=== PATIENT | female | born 1980 | race Caucasian/White ===

== ENCOUNTER 2021-10-31 15:54 | Emergency (ER) | payer OTHER, SELFPAY ==
[2021-10-31 16:08] VITALS: BP 120/82; PULSE 78; RESP 14; TEMP 37; O2SAT 96; BMI 24.3
--- NOTE | 2021-10-31 16:25 | ED_ITS ---
Documented by User: JENNIFER Liz 10/31/21 16:27 HPI - Abdominal Pain General: Chief Complaint: Abdominal Pain Stated Complaint: hx bowel obstruction with symptoms Time Seen by Provider: 10/31/21 16:18 History of Present Illness: HPI narrative: Patient with abdominal discomfort left lower quadrant. Patient has possible constipation over the last week says she is pooping just pellets size stool out presently. Patient has significant history for abdominal colonic adhesions, radical hysterectomy, mass near left kidney, appendectomy, kidney stones, PTSD and fibromyalgia. MD elicited complaint: abdominal pain Pertinent past history: constipation Onset (ago): day(s) Pain Consistency: constant Location: LLQ Severity: mild Quality: aching, fullness and dull Migration to: no migration Associated Symptoms: Reports chills and constipation; Denies nausea and vomiting Review of Systems Const: Reports: chills Eyes: Denies: change in vision or blurry vision ENMT: Denies: throat pain or nasal congestion Card: Denies: chest pain or dyspnea on exertion Resp: Denies: dyspnea, productive cough or non-productive cough GI: Reports: abdominal pain and constipation; Denies: nausea or vomiting Musc: Denies: extremity pain Skin/Breast: Denies: rash Neuro: Denies: headache(s) Psych: Denies: anxiety or depression Koby/Lymph: Denies: easy bruising Physical Exam Const: COMMON NORMALS: no acute distress, average body habitus and patient oriented x3 HENMT: COMMON NORMALS: normocephalic HEAD & SCALP: normal to inspection and normocephalic FACE & SINUS: normal facial exam Eye: COMMON NORMALS: conjunctivae normal GENERAL EYE: appearance normal, both eyes and all related structures CONJUNCTIVA: Yes conjunctivae normal Neck/C-Spine: COMMON NORMALS: no JVD Chest: COMMONS NORMALS: normal inspection of the chest Resp: COMMON NORMALS: normal respiratory effort and clear to auscultation bilaterally AUSCULTATION: clear to auscultation bilaterally Cardio: COMMON NORMALS: no JVD, regular rate and regular rhythm RATE: regular rate RHYTHM: regular rhythm GI: INSPECTION: Yes normal to inspection AUSCULTATION: Yes Hypoactive bowel sounds present PALPATION: Yes Tenderness to palpation present (GI) Details: LLQ Extremity: COMMON NORMALS: normal to inspection and full ROM Neuro: COMMON NORMALS: patient oriented x3 Course Vital Signs: Vital signs: Vital Signs Temperature 98.6 F 10/31/21 16:08 Pulse Rate 89 10/31/21 17:12 Respiratory Rate 16 10/31/21 17:56 Blood Pressure 121/78 10/31/21 17:12 Pulse Oximetry 98 10/31/21 17:12 MDM - Abdominal Pain Lab Data: Labs: Lab Results 10/31/21 10/31/21 10/31/21 17:05 17:05 17:45 WBC 10.0 10^3/uL 10^3 /uL (4.0-10.0) RBC 4.27 10^6/uL 10^6 /uL (4.1-5.3) Hgb 13.0 g/dL g/dL (11.5-15.3) Hct 39.3 % % (37.0-47.0) MCV 92.0 fl fl (81-99) MCH 30.4 pg pg (28.0-34.0) MCHC 33.1 g/dL g/dL (30.0-36.0) RDW 11.6 % L % (12.1-15.1) Plt Count 245 10^3/cmm 10^3 /cmm (130-400) MPV 9.9 fL fL (7.4-10.4) Neut % (Auto) 46.9 % % Lymph % (Auto) 47.5 % % [place] % (Auto) 4.3 % % Eos % (Auto) 0.7 % % Baso % (Auto) 0.4 % % Neut # (Auto) 4.69 10^3/uL 10^3 /uL (1.8-7.7) Lymph # (Auto) 4.8 10^3/uL 10^3/ uL (0.8-4.8) [place] # (Auto) 0.4 10^3/uL 10^3/ uL (0.2-0.9) Eos # (Auto) 0.1 10^3/uL 10^3/ uL (0.0-0.8) Baso # (Auto) 0.0 10^3/uL 10^3/ uL (0.0-0.1) Nucleated RBC % (a uto) 0 % % Nucleated RBCs # 0.0 /100WBC /100W BC Sodium 136 mmol/L mmol/L (136-145) Potassium 4.4 mmol/L mmol/L (3.5-5.1) Chloride 101 mmol/L mmol/L (98-107) Carbon Dioxide 23 mmol/L mmol/L (22-29) Anion Gap 16.4 (5-19) BUN 14 mg/dL mg/dL (6-20) Creatinine 1.0 mg/dL H mg/dL (0.5-0.9) GFR Calculation 61.1 mL/min L mL/ min (90-130) Glucose 87 mg/dL mg/dL (65-115) Calculated Osmolal ity 282 mOsm/kg L mOs m/kg (285-295) Calcium 8.2 mg/dL L mg/dL (8.5-10.5) Total Bilirubin 0.2 mg/dL mg/dL (0.15-1.2) AST 17 U/L U/L (0-32) ALT 12 U/L U/L (0-33) Alkaline Phosphata se 60 IU/L IU/L (35-105) Total Protein 6.3 g/dL L g/dL (6.6-8.7) Albumin 4.0 g/dL g/dL (3.5-5.2) Globulin 2.3 g/dL g/dL (1.3-4.6) Lipase 26 U/L U/L (13-60) Urine Color Yellow (Yellow) Urine Appearance Clear (CLEAR) Urine pH 8 H (5-7) Ur Specific Gravit y 1.010 (1.005-1.030) Urine Protein Neg (Negative) Urine Glucose (UA) Norm (Normal) Urine Ketones 1+ H (Negative) Urine Blood Neg (Negative) Urine Nitrate Negative (Negative) Urine Bilirubin Neg (Negative) Urine Urobilinogen Norm mg/dL mg/dL (Negative) Ur Leukocyte Maureen ase Negative (Negative) Discharge Plan Discharge Patient Disposition: Home Clinical Impression: Abdominal pain of unknown etiology Condition: Stable Discharge Orders: Discharge ED (Routine); Ordered 10/31/21 Ordered By: Jessica Santos Patient Instructions: Abdominal Pain (ED) Sign Out Sign Out Data: Patient Sign Out occurred on 10/31/21 at 16:59. Patient's care was discussed, and care was transferred from to LEONIDAS Diamond. Coding Level of Care Code ED Department Of Sociology Chair for Chg Fwd Exam Comprehensive Documented by User: LEONIDAS Diamond 10/31/21 18:13 HPI - Abdominal Pain General: Chief Complaint: Abdominal Pain Stated Complaint: hx bowel obstruction with symptoms Time Seen by Provider: 10/31/21 16:18 Course Vital Signs: Vital signs: Vital Signs Temperature 98.6 F 10/31/21 16:08 Pulse Rate 89 10/31/21 17:12 Respiratory Rate 16 10/31/21 17:56 Blood Pressure 121/78 10/31/21 17:12 Pulse Oximetry 98 10/31/21 17:12 MDM - Abdominal Pain MDM Narrative: Medical decision making narrative: Patient is a 41-year-old with lower abdominal pain that she describes as a burning sensation. She does endorse constipation. Her vital signs are normal. She appears in no acute distress during my examination. Patient's labs are unremarkable. CT abdomen/pelvis does not show any acute abdominal or pelvic pathology. She does have constipation. Recommended treatment with Colace and MiraLAX. Patient can follow-up with primary care for abdominal pain if this persists. Strict return to ED precautions given. Lab Data: Labs: Lab Results 10/31/21 10/31/21 10/31/21 17:05 17:05 17:45 WBC 10.0 10^3/uL 10^3 /uL (4.0-10.0) RBC 4.27 10^6/uL 10^6 /uL (4.1-5.3) Hgb 13.0 g/dL g/dL (11.5-15.3) Hct 39.3 % % (37.0-47.0) MCV 92.0 fl fl (81-99) MCH 30.4 pg pg (28.0-34.0) MCHC 33.1 g/dL g/dL (30.0-36.0) RDW 11.6 % L % (12.1-15.1) Plt Count 245 10^3/cmm 10^3 /cmm (130-400) MPV 9.9 fL fL (7.4-10.4) Neut % (Auto) 46.9 % % Lymph % (Auto) 47.5 % % [place] % (Auto) 4.3 % % Eos % (Auto) 0.7 % % Baso % (Auto) 0.4 % % Neut # (Auto) 4.69 10^3/uL 10^3 /uL (1.8-7.7) Lymph # (Auto) 4.8 10^3/uL 10^3/ uL (0.8-4.8) [place] # (Auto) 0.4 10^3/uL 10^3/ uL (0.2-0.9) Eos # (Auto) 0.1 10^3/uL 10^3/ uL (0.0-0.8) Baso # (Auto) 0.0 10^3/uL 10^3/ uL (0.0-0.1) Nucleated RBC % (a uto) 0 % % Nucleated RBCs # 0.0 /100WBC /100W BC Sodium 136 mmol/L mmol/L (136-145) Potassium 4.4 mmol/L mmol/L (3.5-5.1) Chloride 101 mmol/L mmol/L (98-107) Carbon Dioxide 23 mmol/L mmol/L (22-29) Anion Gap 16.4 (5-19) BUN 14 mg/dL mg/dL (6-20) Creatinine 1.0 mg/dL H mg/dL (0.5-0.9) GFR Calculation 61.1 mL/min L mL/ min (90-130) Glucose 87 mg/dL mg/dL (65-115) Calculated Osmolal ity 282 mOsm/kg L mOs m/kg (285-295) Calcium 8.2 mg/dL L mg/dL (8.5-10.5) Total Bilirubin 0.2 mg/dL mg/dL (0.15-1.2) AST 17 U/L U/L (0-32) ALT 12 U/L U/L (0-33) Alkaline Phosphata se 60 IU/L IU/L (35-105) Total Protein 6.3 g/dL L g/dL (6.6-8.7) Albumin 4.0 g/dL g/dL (3.5-5.2) Globulin 2.3 g/dL g/dL (1.3-4.6) Lipase 26 U/L U/L (13-60) Urine Color Yellow (Yellow) Urine Appearance Clear (CLEAR) Urine pH 8 H (5-7) Ur Specific Gravit y 1.010 (1.005-1.030) Urine Protein Neg (Negative) Urine Glucose (UA) Norm (Normal) Urine Ketones 1+ H (Negative) Urine Blood Neg (Negative) Urine Nitrate Negative (Negative) Urine Bilirubin Neg (Negative) Urine Urobilinogen Norm mg/dL mg/dL (Negative) Ur Leukocyte Maureen ase Negative (Negative) Imaging Data ^: CT Abd/Pel: Radiologist's impression: [address] [id number] Scan ReportSigned Patient: Felicita Wade #: [id number]: 1980Acct#:[id number]/Sex: 41 / FADM Date: 10/31/21Loc: ERRoom/ Bed:Attending Dr: Ordering Provider/Ordering MD: Jose Amaya Sr, [facility] Date of Service: 10/31/21 Procedure(s): CT abdomen pelvis w con* [id number] Accession Number(s): [id number] Report Number: [id number] PROCEDURE INFORMATION: Exam: CT Abdomen And Pelvis With Contrast Exam date and time: 10/31/2021 4:23 PM Age: 41 years old Clinical indication: Abdominal pain; Generalized; Prior surgery; Surgery date: 6+ months; Surgery type: Appy, hysterectomy; Patient HX: HX of bowel obstruction, adhesions from surgery. Hysterotomy; Additional info: HX of obstruction/mass/surgeries/adhesion, has had complete hysterectomy TECHNIQUE: Imaging protocol: Computed tomography of the abdomen and pelvis with contrast. Total images: 237 Radiation optimization: All CT scans at this facility use at least one of these dose optimization techniques: automated exposure control; mA and/or kV adjustment per patient size (includes targeted exams where dose is matched to clinical indication); or iterative reconstruction. Contrast material: OMNI 300; Contrast volume: 95 ml; Contrast route: INTRAVENOUS (IV); COMPARISON: No relevant prior studies available. RADIATION DOSE METRICS: Total DLP (mGy-cm): 1352.27 FINDINGS: Lungs: Limited assessment of the lung bases fails to reveal evidence for active cardiopulmonary process. Liver: No visible hepatic mass or cystic structure. Gallbladder and bile ducts: Normal. No calcified stones. No ductal dilation. Pancreas: Pancreas is unremarkable. No visible pancreatic ductal ectasia. Spleen: Spleen unremarkable. Adrenal glands: Adrenal glands unremarkable. Kidneys and ureters: No hydronephrosis or perinephric fluid. No visible nephrolithiasis or visible ureterolithiasis. No visible renal mass. Stomach and bowel: Intact sigmoid anastomotic sutures. Nonobstructive bowel pattern. No findings of significant diverticulosis coli or acute diverticulitis. No visible adynamic or reactive ileus. Very heavy fecal residue consistent with constipation. Appendix: Status post appendectomy. Intraperitoneal space: No visible pneumoperitoneum or intraperitoneal ascites. Vasculature: Portal vein patent. The abdominal aorta is nonaneurysmal. Lymph nodes: No current visible evidence of active mesenteric or retroperitoneal lymphadenopathy. No visible evidence of mesenteric lymphadenitis or active mesenteritis/panniculitis. Urinary bladder: Urinary bladder unremarkable. Reproductive: Status post hysterectomy. Bones/joints: No visible acute osseous abnormality. Soft tissues: Unremarkable. CT/CT abdomen pelvis w con* [id number] IMPRESSION: 1. Currently no visible evidence for acute abdominal or pelvic pathologic process. 2. Constipation. Dictated By:Nelli Mireles By:Nelli Mireles Date/Time:10/31/21 1718DD/ 1623 Discharge Plan Discharge Patient Disposition: Home Clinical Impression: Abdominal pain of unknown etiology Condition: Stable Discharge Orders: Discharge ED (Routine); Ordered 10/31/21 Ordered By: Jessica Santos Patient Instructions: Abdominal Pain (ED) Sign Out Sign Out Data: Patient Sign Out occurred on 10/31/21 at 16:59. Patient's care was discussed, and care was transferred from to LEONIDAS Diamond. Coding Level of Care Code ED Department Of Sociology Chair for Chg Fwd Exam Comprehensive
[2021-10-31] MEDS: ondansetron 2 mg/ML SDV 2 mL 4 MG IVP (17:11)
[2021-10-31] MEDS: sodium chloride 0.9% 1,000 ML 999 ML IV (17:11)
[2021-10-31 17:12] VITALS: BP 121/78; PULSE 89; RESP 17; O2SAT 98
[2021-10-31 17:14] LABS: Basophils % 0.4 %; Eosinophils # 0.1 10^3/uL (0.0-0.8); Eosinophils % 0.7 %; Hematocrit 39.3 % (37.0-47.0); Lymphocytes # 4.8 10^3/uL (0.8-4.8); Lymphocytes % 47.5 %; Mean Corpuscular HGB Conc 33.1 g/dL (30.0-36.0); Mean Corpuscular Hemoglobin 30.4 pg (28.0-34.0); Mean Platelet Volume 9.9 fL (7.4-10.4); Monocytes # 0.4 10^3/uL (0.2-0.9); Monocytes % 4.3 %; Neutrophils # 4.69 10^3/uL (1.8-7.7); Neutrophils % 46.9 %; Nucleated Red Blood Cells % 0 %; Platelet Count 245 10^3/cmm (130-400); Red Blood Count 4.27 10^6/uL (4.1-5.3); Red Cell Distribution Width 11.6 % (12.1-15.1)
[2021-10-31 17:31] LABS: Alanine Aminotransferase 12 U/L (0-33); Alkaline Phosphatase 60 IU/L (35-105); Aspartate Amino Transferase 17 U/L (0-32); Blood Urea Nitrogen 14 mg/dL (6-20); Calcium 8.2 mg/dL (8.5-10.5); Carbon Dioxide 23 mmol/L (22-29); Chloride 101 mmol/L (98-107); Globulin 2.3 g/dL (1.3-4.6); Glomerular Filtration Rate 61.1 mL/min (90-130); Glucose 87 mg/dL (65-115); Lipase 26 U/L (13-60); Osmolality Calculated 282 mOsm/kg (285-295); Sodium 136 mmol/L (136-145); Total Bilirubin 0.2 mg/dL (0.15-1.2); Total Protein 6.3 g/dL (6.6-8.7)
[2021-10-31 17:34] LABS: Anion Gap 16.4 (5-19); Potassium 4.4 mmol/L (3.5-5.1)
[2021-10-31 17:56] VITALS: RESP 16
[2021-10-31] MEDS: morphine 4 mg/mL SDV 1 mL IVP (17:56)
[2021-10-31 18:02] LABS: Add Urine Microscopic? NO; Charge for UA Resulting for Rev
[2021-10-31 18:06] LABS: Urine Appearance Clear (CLEAR); Urine Color Yellow (Yellow); pH Urine 8 (5-7)
[2021-10-31 18:07] LABS: Bilirubin Urine Neg (Negative); Blood Urine Neg (Negative); Glucose Urine UA Norm (Normal); Ketones Urine 1+ (Negative); Leukocyte Esterase Urine Negative (Negative); Nitrate Urine Negative (Negative); Protein Urine Neg (Negative); Urobilinogen Urine Norm (Negative)
[2021-10-31 18:47] VITALS: BP 123/83; PULSE 94; RESP 14; O2SAT 97
== END 2021-10-31 18:49 | disposition home or self-care (01) ==
PROVIDERS: Nurse Practitioner Family; Emergency Provider Physician Assistant
DX: R10.9 Unspecified abdominal pain (principal)
CPT/HCPCS: 74177; 80053; 81003; 83690; 85025; 96361; 96374; 96375; 99283; J2270; J2405; J7030; Q9967

== ENCOUNTER 2022-08-29 17:59 | Emergency (ER) | payer OTHER, SELFPAY ==
[2022-08-29] VITALS (7 sets, daily range): BP systolic 109–138; BP diastolic 79–91; PULSE 73–96; RESP 14–27; O2SAT 96–98; BMI 19.9
--- NOTE | 2022-08-29 18:12 | ECG_ITS ---
[facility] Test Date: 2022-08-29 Pat Name: Felicita Wade Department: Room: Gender: Female Certified Residential Medication Aide: : 1980 Requested By: José Miguel Acevedo Order Number: [id number] Kait MD: Grecia Bonner M.D. Measurements Intervals Pep Rate: 85 P: 63 AZ: 121 QRS: 96 QRSD: 105 T: 76 QT: 358 QTc: 428 Interpretive Statements SINUS RHYTHM BORDERLINE RIGHT AXIS DEVIATION [QRS AXIS > 90] INCOMPLETE RIGHT BUNDLE BRANCH BLOCK [90+ ms QRS DURATION, TERMINAL R IN V1/V2, 40+ ms S IN I/aVL/V4/V5/V6] No previous ECG available for comparison Electronically Signed On 08-31-2022 23:00:36 CDT by Grecia Bonner M.D. [email or web address] [email or web address].Omniox/store/NU/[id number] f
--- NOTE | 2022-08-29 18:41 | XRR_ITS ---
PROCEDURE INFORMATION: Exam: XR Chest Exam date and time: 08/29/2022 6:46 PM Age: 41 years old Clinical indication: Pain; Chest pressure; Prior surgery; Additional info: Cp TECHNIQUE: Imaging protocol: Radiologic exam of the chest. Views: 1 view. COMPARISON: CT abdomen pelvis w con* [id number] 10/31/2021 4:38 PM FINDINGS: Lungs: Unremarkable. No consolidation. Pleural spaces: Unremarkable. No pleural effusion. No pneumothorax. Heart/Mediastinum: Unremarkable. No cardiomegaly. Bones/joints: Unremarkable. XR/XR chest 1V portable [id number] IMPRESSION: No acute findings.
[2022-08-29 18:52] LABS: Basophils # 0.1 10^3/uL (0.0-0.1); Basophils % 0.7 %; Eosinophils # 0.1 10^3/uL (0.0-0.8); Eosinophils % 1.4 %; Hemoglobin 14.1 g/dL (11.5-15.3); Lymphocytes # 4.3 10^3/uL (0.8-4.8); Lymphocytes % 41.4 %; Mean Corpuscular HGB Conc 32.8 g/dL (30.0-36.0); Mean Corpuscular Hemoglobin 31.3 pg (28.0-34.0); Mean Corpuscular Volume 95.6 fl (81-99); Mean Platelet Volume 9.5 fL (7.4-10.4); Monocytes # 0.4 10^3/uL (0.2-0.9); Monocytes % 4.3 %; Neutrophils # 5.36 10^3/uL (1.8-7.7); Neutrophils % 51.8 %; Nucleated Red Blood Cells % 0 %; Platelet Count 292 10^3/cmm (130-400); Red Cell Distribution Width 11.9 % (12.1-15.1); White Blood Count 10.3 10^3/uL (4.0-10.0)
[2022-08-29 18:59] LABS: D Dimer 0.56 ug/mIFEU (0-0.59)
[2022-08-29 19:02] LABS: Troponin(5th) Baseline 6 ng/L (0-10)
[2022-08-29 19:10] LABS: Anion Gap 12.9 (5-19); Blood Urea Nitrogen 20 mg/dL (6-20); Calcium 9.3 mg/dL (8.5-10.5); Carbon Dioxide 23 mmol/L (22-29); Chloride 99 mmol/L (98-107); Creatine Phosphokinase 78 U/L (26-192); Glomerular Filtration Rate 54.7 mL/min (90-130); Glucose 104 mg/dL (65-115); Lipase 35 U/L (13-60); NT Pro B Type Natriuretic Pept 50 pg/mL (0-125); Osmolality Calculated 275 mOsm/kg (285-295); Potassium 3.9 mmol/L (3.5-5.1); Sodium 131 mmol/L (136-145)
[2022-08-29] MEDS: ondansetron 2 mg/ML SDV 2 mL 4 MG IVP (19:31)
--- NOTE | 2022-08-29 19:53 | ED_ITS ---
HPI - Chest Pain General: Chief Complaint: Chest Pain Stated Complaint: Chest Pain Time Seen by Provider: 08/29/22 18:20 Source: patient History of Present Illness: 41-year-old female with a history of stage IV endometriosis following laparoscopy, thoracostomy, and removal of multiple areas presenting with chest discomfort. She says that she was eating dinner with family, and felt a sudden discomfort in her chest like her heart was falling . She felt like she was going to pass out. She went home and went to bed, but her symptoms did not improve, and then she began to get true chest pain. She localizes her pain centrally in her chest. No significant radiation. She is nauseated with the pain. She has no significant shortness of breath, no jose phoresis. No cough or fever. MD complaint: chest pain and chest discomfort Pertinent past history: other Onset (ago): hour(s) Timing of current episode: constant Prior episodes: Yes Onset: during rest Pain location: substernal Pain radiation: none Severity: moderate Quality: aching Relieving factors: nothing Exacerbating factors: nothing Associated symptoms: Reports nausea and palpitations; Deny abdominal pain, diaphoresis, dyspnea, fever(s), leg edema or vomiting Review of Systems Const: Denies: fever(s) or diaphoresis ENMT: Denies: throat pain Card: Reports: chest pain and palpitations Resp: Denies: dyspnea GI: Reports: nausea; Denies: abdominal pain or vomiting Musc: Denies: neck pain Psych: Reports: anxiety Physical Exam Const: COMMON NORMALS: no acute distress GENERAL APPEARANCE: cooperative and anxious; not ill appearing and not frail appearing HENMT: COMMON NORMALS: normocephalic, atraumatic and Normal external nose present HEAD & SCALP: normocephalic and atraumatic FACE & SINUS: normal facial exam and face symmetric NOSE: Normal external nose present Eye: COMMON NORMALS: Equal, round and reactive pupils present and EOMs intact bilaterally PUPIL: Yes Equal, round and reactive pupils present Neck/C-Spine: GENERAL: Yes trachea midline Chest: CHEST: Yes Symmetrical chest wall rise Resp: COMMON NORMALS: normal respiratory effort, No retractions, No use of accessory muscles and clear to auscultation bilaterally AUSCULTATION: clear to auscultation bilaterally Cardio: COMMON NORMALS: regular rate and regular rhythm RATE: regular rate RHYTHM: regular rhythm GI: COMMON NORMALS: Normal to inspection, nondistended, normoactive bowel sounds present Extremity: COMMON NORMALS: no pedal edema Neuro: VANESSA COMA SCALE: document GCS findings Vanessa coma scale eye opening: Spontaneous Vanessa coma scale verbal response: Orientated Vanessa coma scale motor response: Obey commands Douglas coma scale total score: 15 SENSORY EXAM: Yes extremities (intact) Psych: COMMON NORMALS: speech normal SPEECH: Yes normal speech Skin: COMMON NORMALS: no rashes or lesions noted GENERAL SKIN EXAM: no rashes or lesions noted Course Vital Signs: Vital signs: Vital Signs Pulse Rate 86 08/29/22 20:30 Respiratory Rate 14 08/29/22 20:30 Blood Pressure 138/81 08/29/22 20:30 Pulse Oximetry 97 08/29/22 20:30 Oxygen Delivery Me thod 08/29/22 20:30 MDM - Chest Pain Medical Decision Making EKG shows a sinus rhythm and incomplete right bundle branch block. [place] is right rate is [address] changes. D-dimer is normal. White blood cell count is 10.3. Rest of her CBC is normal. Her creatinine is 1.1. Lipase is 35. Normal liver enzymes. Chest x-ray is negative. She became nauseated and was given medication for this. She is counseled on laboratory results and EKG findings. She believes with the palpitation she is having, and an arrhythmia may be causing this. We will see if we can set her up as an outpatient for Holter monitor next week. She has an appointment in a month with cardiology. Lab Data : 08/29/22 18:08/29/22 18:26 Radiology Impressions Chest X-Ray 08/29/22 18:41 IMPRESSION: No acute findings. Laboratory Results WBC 10.3 10^3/uL (4.0-10.0) H 08/29/22 18: RBC 4.50 10^6/uL (4.1-5.3) 08/29/22 18: Hgb 14.1 g/dL (11.5-15.3) 08/29/22 18: Hct 43.0 % (37.0-47.0) 08/29/22 18: MCV 95.6 fl (81-99) 08/29/22 18: MCH 31.3 pg (28.0-34.0) 08/29/22 18: MCHC 32.8 g/dL (30.0-36.0) 08/29/22 18: RDW 11.9 % (12.1-15.1) L 08/29/22 18: Plt Count 292 10^3/cmm (130-400) 08/29/22 18: MPV 9.5 fL (7.4-10.4) 08/29/22 18: Neut % (Auto) 51.8 % 08/29/22 18: Lymph % (Auto) 41.4 % 08/29/22 18: [place] % (Auto) 4.3 % 08/29/22: Eos % (Auto) 1.4 % 08/29/22 Baso % (Auto) 0.7 % 08/29/22 Neut # (Auto) 5.36 10^3/uL (1.8-7.7) 08/29/22: Lymph # (Auto) 4.3 10^3/uL (0.8-4.8) 08/29/22 18: [place] # (Auto) 0.4 10^3/uL (0.2-0.9) 08/29/22: Eos # (Auto) 0.1 10^3/uL (0.0-0.8) 08/29/22: Baso # (Auto) 0.1 10^3/uL (0.0-0.1) 08/29/22: Nucleated RBC % (auto) 0 % 08/29/22 Nucleated RBCs # 0.0 /100WBC 08/29/22 18: D-Dimer 0.56 ug/mIFEU (0-0.59) 08/29/22 18: Sodium 131 mmol/L (136-145) L 08/29/22 18: Potassium 3.9 mmol/L (3.5-5.1) 08/29/22 18: Chloride 99 mmol/L (98-107) 08/29/22 18: Carbon Dioxide 23 mmol/L (22-29) 08/29/22 18: Anion Gap 12.9 (5-19) 08/29/22 18:26 BUN 20 mg/dL (6-20) 08/29/22 18:26 Creatinine 1.1 mg/dL (0.5-0.9) H 08/29/22 18:26 GFR Calculation 54.7 mL/min (90-130) L 08/29/22 18:26 Glucose 104 mg/dL (65-115) 08/29/22 18:26 Calculated Osmolality 275 mOsm/kg (285-295) L 08/29/22 18:26 Calcium 9.3 mg/dL (8.5-10.5) 08/29/22 18:26 Creatine Kinase 78 U/L (26-192) 08/29/22 18:26 Troponin T Baseline 6 ng/L (0-10) 08/29/22 18:26 Troponin T 120 Minute 6.00 ng/L (0-10) 08/29/22 19:45 Delta Troponin T 0 ABS# (0-10) 08/29/22 19:45 NT-Pro-B Natriuret Pep 50 pg/mL (0-125) 08/29/22 18:26 Lipase 35 U/L (13-60) 08/29/22 18:26 Discharge Plan Discharge Patient Disposition: Home Clinical Impression: Near syncope, Chest pain Condition: Stable Discharge Orders: Discharge ED (Routine); Ordered 08/29/22 Ordered By: José Miguel Mcconnell Patient Instructions: Chest Pain (ED), Near Syncope (ED) Activity Restrictions/Additional Instructions: Case management has been requested to set you up with a Holter monitor. You should get a call at the beginning of the week for an appointment regarding placement. Return for repeated episodes of chest pain, near syncope or passing out, palpitations of your heart, other concerning symptoms. Coding Level of Care Code ED Special Events Planner for Rosana Fwd Exam Comprehensive
[2022-08-29 20:31] LABS: Troponin 5 2HR Delta 0 ABS# (0-10)
--- NOTE | 2022-08-29 20:41 | ECG_ITS ---
[facility] Test Date: 2022-08-29 Pat Name: Felicita Wade Department: Room: Gender: Female [employer] Consultant: : 1980 Requested By: José Miguel Acevedo Order Number: [id number] Kait MD: Grecia Bonner M.D. Measurements Intervals [place] Rate: 83 P: 61 SD: 130 QRS: 97 QRSD: 99 T: 75 QT: 364 QTc: 429 Interpretive Statements SINUS RHYTHM BORDERLINE RIGHT AXIS DEVIATION [QRS AXIS > 90] INCOMPLETE RIGHT BUNDLE BRANCH BLOCK [90+ ms QRS DURATION, TERMINAL R IN V1/V2, 40+ ms S IN I/aVL/V4/V5/V6] Compared to ECG 08/29/2022 18:12:52 No significant changes Electronically Signed On 08-31-2022 23:12:37 CDT by Grecia Bonner M.D. [email or web address] Grabst. [email or web address].[employer]ruff[employer]/store/OM/[id number]
--- NOTE | 2022-09-01 16:41 | DCPLANNER ---
Addendum entered by Lily Mixon 09/30/22 14:50: Patient had a follow up appointment scheduled for 09.01.22 for a monitor at [facility] - patient did attend appointment. Original Note: presentation manager had message to schedule an out patient monitor for patient with [facility]. presentation manager sent patients information to [facility], and faxed a signed order to [facility]. The clinic will call patient with appointment information.
== END 2022-08-29 21:09 | disposition home or self-care (01) ==
PROVIDERS: Emergency Provider Emergency Medicine
DX: R07.9 Chest pain, unspecified (principal); R55 Syncope and collapse; I45.10 Unspecified right bundle-branch block
CPT/HCPCS: 71045; 80048; 82550; 83690; 83880; 84484; 85025; 85378; 93005; 96374; 99285; J2405

== ENCOUNTER → 2023-01-01 15:41 | Outpatient (BNVA) | payer OTHER, MEDICAID, SELFPAY | PROVIDERS: Visit Provider Family Medicine Adult Medicine | DX: N30.10 Interstitial cystitis (chronic) without hematuria (principal); N95.1 Menopausal and female climacteric states; N18.31 Chronic kidney disease, stage 3a; K90.0 Celiac disease; Z87.42 Personal history of other diseases of the female genital tract; F41.9 Anxiety disorder, unspecified; K58.9 Irritable bowel syndrome, unspecified; G43.909 Migraine, unspecified, not intractable, without status migrainosus; F43.10 Post-traumatic stress disorder, unspecified; M79.7 Fibromyalgia; R00.0 Tachycardia, unspecified; Z78.9 Other specified health status; Z83.3 Family history of diabetes mellitus | CPT/HCPCS: 80053; 82040; 82672; 82677; 83001; 83036; 84144; 84270; 84403; 85025 ==

== ENCOUNTER → 2023-01-29 14:30 | Outpatient (BNVA) | payer OTHER, SELFPAY | PROVIDERS: Visit Provider Obstetrics & Gynecology | DX: Z01.419 Encounter for gynecological examination (general) (routine) without abnormal findings (principal) | CPT/HCPCS: 87081; 87624 ==

== ENCOUNTER 2023-07-21 06:47 | Outpatient (RCR) | payer OTHER, SELFPAY | END 2023-08-07 23:59 | disposition home or self-care (01) | LOC: SPT 06:47 | PROVIDERS: Visit Provider Family Medicine Adult Medicine | DX: N39.3 Stress incontinence (female) (male) (principal) | CPT/HCPCS: 97161 ==

== ENCOUNTER 2023-08-07 22:20 | Emergency (ER) | payer OTHER, SELFPAY ==
[2023-08-07 22:49] VITALS: BP 124/85; PULSE 78; RESP 18; TEMP 36.6; O2SAT 98; BMI 24.7
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
[2023-08-08] MEDS: lidocaine 4% cream 5 gm 1 APPLIC TOPICAL (00:07)
[2023-08-08 00:08] VITALS: PULSE 86; RESP 16; O2SAT 98
== END 2023-08-08 00:05 | disposition home or self-care (01) ==
PROVIDERS: Emergency Provider Nurse Practitioner Family
DX: T23.232A Burn of second degree of multiple left fingers (nail), not including thumb, initial encounter (principal); X15.1XXA Contact with hot toaster, initial encounter; N18.31 Chronic kidney disease, stage 3a
CPT/HCPCS: 99283

== ENCOUNTER 2023-08-08 06:00 | Outpatient (RCR) | payer OTHER, SELFPAY | END 2023-09-07 23:59 | disposition home or self-care (01) | LOC: SPT 06:00 | PROVIDERS: Visit Provider Family Medicine Adult Medicine | DX: N39.3 Stress incontinence (female) (male) (principal) | CPT/HCPCS: 97110; 97530 ==

== ENCOUNTER → 2023-09-05 10:37 | Outpatient (BNVA) | payer OTHER, SELFPAY | PROVIDERS: Visit Provider Family Medicine | DX: R05.9 Cough, unspecified (principal); Z20.822 Contact with and (suspected) exposure to COVID-19; J06.9 Acute upper respiratory infection, unspecified | CPT/HCPCS: 87426 ==

== ENCOUNTER 2023-09-08 06:00 | Outpatient (RCR) | payer OTHER, SELFPAY | END 2023-10-07 23:59 | disposition home or self-care (01) | LOC: SPT 06:00 | PROVIDERS: Visit Provider Family Medicine Adult Medicine | DX: N39.3 Stress incontinence (female) (male) (principal) | CPT/HCPCS: 97110; 97530 ==

== ENCOUNTER → 2023-09-10 10:50 | Outpatient (BNVA) | payer OTHER, SELFPAY | PROVIDERS: Visit Provider Nurse Practitioner Family | DX: R30.0 Dysuria (principal) | CPT/HCPCS: 81000 ==

== ENCOUNTER 2023-11-03 07:09 | Outpatient (RCR) | payer OTHER, SELFPAY | END 2023-11-07 23:59 | disposition home or self-care (01) | LOC: SPT 07:09 | PROVIDERS: Visit Provider Family Medicine Adult Medicine | DX: N39.3 Stress incontinence (female) (male) (principal) | CPT/HCPCS: 97110 ==

== ENCOUNTER 2023-12-04 23:31 | Emergency (ER) | payer OTHER, SELFPAY ==
[2023-12-04 23:31] VITALS: BP 139/88; PULSE 104; RESP 18; TEMP 36.7; O2SAT 96; BMI 25.9
--- NOTE | 2023-12-05 02:15 | XRR_ITS ---
PROCEDURE INFORMATION: Exam: XR Chest Exam date and time: 12/05/2023 2:18 AM Age: 43 years old Clinical indication: Shortness of breath; Prior surgery; Surgery date: 6+ months; Surgery type: Thoracotomy; Patient HX: SOB due to allergic reaction; Additional info: SOB, allergic rxn TECHNIQUE: Imaging protocol: Radiologic exam of the chest. Views: 1 view. COMPARISON: CR XR chest 1V portable [id number] 08/29/2022 6:46 PM FINDINGS: Lungs: No consolidation. Pleural spaces: No large pleural effusion. No pneumothorax. Heart/Mediastinum: Unremarkable. No cardiomegaly. Bones/joints: No acute abnormality. XR/XR chest 1V portable [id number] IMPRESSION: No acute findings.
[2023-12-05] MEDS: dexamethasone 10 mg/mL INJ IVP (02:51)
[2023-12-05] MEDS: LORazepam 2 mg/mL INJ 10 mL MDV 1 MG IVP (02:52)
[2023-12-05] MEDS: diphenhydrAMINE 50 mg/mL SDV 1mL 25 MG IVP (02:52)
--- NOTE | 2023-12-05 16:22 | ED_ITS ---
HPI - Allergic Reaction General: Chief complaint: Allergic Reaction Stated complaint: alergic reation Time Seen by Provider: 12/05/23 02:03 Source: patient History of Present Illness: HPI narrative: 43 year old female with a history of mul tiple food intolerances and allergies. She presents with generalized itching of the skin, some diarrhea, swelling to the face and extremities. She has had these symptoms since . She saw her doctor earlier today, and was given Famotidine, Zyrtec, and Prednisone. She's had 60 milligrams of Prednisone today without much improvement in her symptoms. She has had some throat tightness, which feels improved currently. Associated symptoms: Reports nausea; Deny hoarseness Review of Systems Const: Denies: fever(s) or chills ENMT: Reports: swelling of lips/tongue and dry mouth; Denies: throat pain or hoarseness Card: Denies: chest pain Resp: Reports: dyspnea; Denies: productive cough or non-productive cough GI: Reports: nausea, diarrhea and bloating Skin/Breast: Reports: pruritus PFSH ED PFSH: Medical History Low back pain Stress incontinence in female Bleeding from the nose Hx of long-term (current) use of postmenopausal hormone replacement therapy Postmenopausal disorder Family history of diabetes mellitus Interstitial cystitis Chronic kidney disease, stage 3a TMJ arthralgia Sinus tachycardia Migraines Anxiety Celiac disease IBS (irritable bowel syndrome) Fibromyalgia PTSD (post-traumatic stress disorder) History of endometriosis Surgical History History of total hysterectomy with bilateral salpingo-oophorectomy (BSO) S/P endometrial ablation S/P colonoscopy H/O abdominal surgery S/P cystoscopy S/P radical vaginal hysterectomy History of thoracotomy S/P appendectomy Family History Father Myocardial infarction Hypertension CAD (coronary artery disease) Grandfather Myocardial infarction Hypertension Grandmother Myocardial infarction Hypertension Diabetes Family/Other Myocardial infarction Both sides of families Hypertension Mother Hypertension Social History Smoking and tobacco/nicotine status: never used tobacco/nicotine Physical Exam Const: COMMON NORMALS: no acute distress GENERAL APPEARANCE: cooperative; not ill appearing and not frail appearing HENMT: COMMON NORMALS: normocephalic, atraumatic and Normal external nose present HEAD & SCALP: normocephalic and atraumatic FACE & SINUS: normal facial exam and face symmetric NOSE: Normal external nose present Eye: COMMON NORMALS: Equal, round and reactive pupils present and EOMs intact bilaterally PUPIL: Yes Equal, round and reactive pupils present Neck/C-Spine: GENERAL: Yes trachea midline Chest: CHEST: Yes Symmetrical chest wall rise Resp: COMMON NORMALS: normal respiratory effort, No retractions, No use of accessory muscles and clear to auscultation bilaterally AUSCULTATION: clear to auscultation bilaterally Cardio: COMMON NORMALS: regular rate and regular rhythm RATE: regular rate RHYTHM: regular rhythm GI: COMMON NORMALS: Normal to inspection, nondistended, normoactive bowel sounds present Extremity: COMMON NORMALS: no pedal edema Neuro: VANESSA COMA SCALE: document GCS findings Vanessa coma scale eye opening: Spontaneous [place] coma scale verbal response: Orientated [place] coma scale motor response: Obey commands [place] coma scale total score: 15 SENSORY EXAM: Yes extremities (intact) Psych: COMMON NORMALS: speech normal SPEECH: Yes normal speech Skin: COMMON NORMALS: no rashes or lesions noted GENERAL SKIN EXAM: no rashes or lesions noted Course Vital Signs: Vital signs: Vital Signs Temperature 98.1 F 12/04/23 23:31 Pulse Rate 104 H 12/04/23 23:31 Respiratory Rate 18 12/04/23 23:31 Blood Pressure 139/88 12/04/23 23:31 Pulse Oximetry 96 12/04/23 23:31 Oxygen Delivery Me thod Room Air 12/04/23 23:31 MDM - Allergic Reaction Medical Decision Making This patient was given Iv Benadryl and Ativan for itching, Iv dexamethasone. Her chest X-ray is normal. Vitals have been normal on the monitor. She's feeling improved. She'll be a lot discharged. We will place her on atarax and leave a Benadryl, she may continue her Zyrtec and Prednisone. To return for worsening symptoms despite treatment. Lab Data Radiology Impressions Chest X-Ray 12/05/23 02:15 IMPRESSION: No acute findings. All radiology interpretation(s) finalized by discharge Discharge Plan Discharge Patient Disposition: Home Clinical Impression: Allergic reaction Condition: Stable Prescriptions: New hydroxyzine HCl 50 mg tablet 50 mg PO Q6H PRN (Reason: itching) Qty: 20 0RF No Action estradiol 1 mg tablet 1 mg PO DAILY Qty: 30 12RF Rx Instructions: off 1 week; repeat cycle ondansetron HCl 4 mg tablet 4 mg PO Q8H PRN tizanidine 2 mg tablet 2 mg PO Q8H PRN Colace Clear 50 mg capsule 50 mg PO DAILY PRN vitamin B complex [B Complex-Vitamin B12] Tablet 1 tab PO DAILY digestive enzymes Tablet 1 tab PO .every meal PRN magnesium malate, chelate 125 mg magnesium capsule 750 mg PO TID PRN fluticasone propionate 50 mcg/actuation spray,suspension 1 spray intranasal BID Qty: 16 3RF Rx Instructions: administer into each nostril testosterone cypionate [Depo-Testosterone] 200 mg/mL oil 100 mg IM .every 4 weeks Qty: 1 0RF prednisone 20 mg tablet 40 mg PO DAILY 5 Days Qty: 10 0RF cetirizine [Zyrtec] 10 mg tablet 10 mg PO DAILY Qty: 30 0RF famotidine 40 mg tablet 40 mg PO DAILY Qty: 7 0RF duloxetine [Cymbalta] 20 mg capsule,delayed release(DR/EC) 40 mg PO BID Qty: 60 1RF xkifycbrug-imauceqnahtwn-skvk 50-325-40 mg capsule 1 cap PO Q6H PRN (Reason: migraine) Qty: 30 1RF lorazepam 1 mg tablet 1 mg PO DAILY PRN (Reason: anxiety) 30 Days Qty: 30 2RF topiramate 25 mg tablet 75 mg PO .HS Qty: 30 3RF lamotrigine [Lamictal] 100 mg tablet 150 mg PO DAILY Qty: 30 1RF lidocaine 4 % cream 1 applic topical Q6H PRN (Reason: pain) Qty: 15 0RF bacitracin 500 unit/gram ointment 1 applic topical BID Qty: 14 0RF Discharge Orders: Discharge ED (Routine); Ordered 12/05/23 Ordered By: José Miguel Mcconnell Referrals: Prabhakar Mayorga MD [Primary Care Provider] - 1-3 days Patient Instructions: Allergies (ED), Opioid Safety, Pain Management Activity Restrictions/Additional Instructions: Continue medications prescribed by your doctor. You may add the prescribed medication. Take it at least 3 times daily for the next 48 hours, then as needed following. Coding Level of Care Code ED Upholstery Mechanic for Rosana Humphreys
== END 2023-12-05 03:41 | disposition home or self-care (01) ==
PROVIDERS: Emergency Provider Emergency Medicine; PCP Family Medicine Adult Medicine
DX: T78.40XA Allergy, unspecified, initial encounter (principal); N18.31 Chronic kidney disease, stage 3a
CPT/HCPCS: 71045; 96374; 96375; 99284; J1100; J1200; J2060

== ENCOUNTER 2023-12-09 06:00 | Outpatient (RCR) | payer OTHER, SELFPAY | END 2024-01-06 23:59 | disposition home or self-care (01) | LOC: SPT 06:00 | PROVIDERS: PCP Family Medicine Adult Medicine; Visit Provider Family Medicine Adult Medicine | DX: N39.3 Stress incontinence (female) (male) (principal); M54.50 Low back pain, unspecified | CPT/HCPCS: 97110 ==

== ENCOUNTER → 2023-12-09 10:57 | Outpatient (BNVA) | payer OTHER, SELFPAY | PROVIDERS: PCP Family Medicine Adult Medicine; Visit Provider Family Medicine Adult Medicine | DX: T78.40XA Allergy, unspecified, initial encounter (principal); K58.9 Irritable bowel syndrome, unspecified; L28.2 Other prurigo; R19.00 Intra-abdominal and pelvic swelling, mass and lump, unspecified site; K90.0 Celiac disease; K58.2 Mixed irritable bowel syndrome | CPT/HCPCS: 82785; 86003 ==

== ENCOUNTER 2024-01-07 06:00 | Outpatient (RCR) | payer OTHER, SELFPAY | END 2024-02-06 23:59 | disposition home or self-care (01) | LOC: SPT 06:00 | PROVIDERS: PCP Family Medicine Adult Medicine; Visit Provider Family Medicine Adult Medicine | DX: N39.3 Stress incontinence (female) (male) (principal); M54.50 Low back pain, unspecified | CPT/HCPCS: 97110 ==

== ENCOUNTER → 2024-01-17 11:59 | Outpatient (BNVA) | payer OTHER, SELFPAY | PROVIDERS: PCP Family Medicine Adult Medicine; Visit Provider Nurse Practitioner Family | DX: S93.491A Sprain of other ligament of right ankle, initial encounter (principal); W10.9XXA Fall (on) (from) unspecified stairs and steps, initial encounter | CPT/HCPCS: 73610 ==

== ENCOUNTER → 2024-01-27 16:00 | Outpatient (BNVA) | payer OTHER, SELFPAY | PROVIDERS: PCP Family Medicine Adult Medicine; Visit Provider Nurse Practitioner | DX: S99.911A Unspecified injury of right ankle, initial encounter (principal); X58.XXXA Exposure to other specified factors, initial encounter; M79.89 Other specified soft tissue disorders | CPT/HCPCS: 73610 ==

== ENCOUNTER 2024-02-07 06:00 | Outpatient (RCR) | payer OTHER, SELFPAY | END 2024-03-07 23:59 | disposition home or self-care (01) | LOC: SPT 06:00 | PROVIDERS: PCP Family Medicine Adult Medicine; Visit Provider Family Medicine Adult Medicine | DX: N39.3 Stress incontinence (female) (male) (principal); M54.50 Low back pain, unspecified | CPT/HCPCS: 97110 ==

== ENCOUNTER 2024-04-08 06:00 | Outpatient (RCR) | payer OTHER, SELFPAY | END 2024-05-07 23:59 | disposition home or self-care (01) | LOC: SPT 06:00 | PROVIDERS: PCP Family Medicine Adult Medicine; Visit Provider Family Medicine Adult Medicine | DX: N39.3 Stress incontinence (female) (male) (principal); M54.50 Low back pain, unspecified | CPT/HCPCS: 97110 ==

== ENCOUNTER 2024-05-08 06:00 | Outpatient (RCR) | payer OTHER, SELFPAY | END 2024-06-07 23:59 | disposition home or self-care (01) | LOC: SPT 06:00 | PROVIDERS: PCP Family Medicine Adult Medicine; Visit Provider Family Medicine Adult Medicine | DX: N39.3 Stress incontinence (female) (male) (principal); M54.50 Low back pain, unspecified | CPT/HCPCS: 97110; 97530 ==

== ENCOUNTER 2024-06-08 06:00 | Outpatient (RCR) | payer OTHER, SELFPAY | END 2024-07-08 23:59 | disposition home or self-care (01) | LOC: SPT 06:00 | PROVIDERS: PCP Family Medicine Adult Medicine; Visit Provider Family Medicine Adult Medicine | DX: N39.3 Stress incontinence (female) (male) (principal); M54.50 Low back pain, unspecified | CPT/HCPCS: 97110 ==

== ENCOUNTER → 2024-06-30 11:48 | Outpatient (BNVA) | payer OTHER, SELFPAY | PROVIDERS: PCP Family Medicine Adult Medicine; Visit Provider Nurse Practitioner Family | DX: K59.00 Constipation, unspecified (principal) | CPT/HCPCS: 74018 ==

== ENCOUNTER 2024-07-03 13:21 | Outpatient (CLI) | payer OTHER, SELFPAY ==
[2024-07-03 13:46] LABS: Basophils % 0.5 %; Eosinophils # 0.2 10^3/uL (0.0-0.8); Eosinophils % 1.8 %; Hematocrit 44.1 % (36-47); Lymphocytes % 48.6 %; Mean Corpuscular HGB Conc 33.8 g/dL (30-55); Mean Corpuscular Hemoglobin 30.8 pg (27-33); Mean Corpuscular Volume 91.1 fl (85-98); Mean Platelet Volume 9.3 fL (7.4-10.4); Monocytes # 0.3 10^3/uL (0.2-0.9); Neutrophils # 3.72 10^3/uL (1.8-7.7); Nucleated Red Blood Cells % 0 %; Platelet Count 295 10^3/cmm (157-399); Red Blood Count 4.84 10^6/uL (3.85-5.65); Red Cell Distribution Width 11.5 % (12.1-15.1); White Blood Count 8.27 10^3/uL (3.29-11.43)
[2024-07-03 14:12] LABS: Alanine Aminotransferase 13 U/L (0-33); Albumin Level 4.3 g/dL (3.5-5.2); Alkaline Phosphatase 79 U/L (35-105); Anion Gap 14.3 (5-19); Aspartate Amino Transferase 16 U/L (0-32); Blood Urea Nitrogen 21 mg/dL (6-20); Carbon Dioxide 27 mmol/L (22-29); Chloride 103 mmol/L (98-107); Globulin 2.5 g/dL (1.3-4.6); Glomerular Filtration Rate 78.3 mL/min (90-130); Glucose 96 mg/dL (65-115); Osmolality Calculated 293 mOsm/kg (285-295); Potassium 4.3 mmol/L (3.5-5.1); Sodium 140 mmol/L (136-145); Total Bilirubin 0.2 mg/dL (0.15-1.2); Total Protein 6.8 g/dL (6.6-8.7)
== END 2024-07-03 13:22 | disposition home or self-care (01) ==
LOC: LAB 13:24
PROVIDERS: PCP Family Medicine Adult Medicine; Visit Provider Nurse Practitioner Family
DX: R10.32 Left lower quadrant pain (principal); L65.9 Nonscarring hair loss, unspecified
CPT/HCPCS: 36415; 80053; 84443; 85025

== ENCOUNTER 2024-07-09 06:00 | Outpatient (RCR) | payer OTHER, SELFPAY | END 2024-08-07 23:59 | disposition home or self-care (01) | LOC: SPT 06:00 | PROVIDERS: PCP Family Medicine Adult Medicine; Visit Provider Family Medicine Adult Medicine | DX: N39.3 Stress incontinence (female) (male) (principal); M54.50 Low back pain, unspecified | CPT/HCPCS: 97110 ==

== ENCOUNTER 2024-07-18 11:18 | Outpatient (CLI) | payer OTHER, SELFPAY ==
[2024-07-19 18:05] LABS: Beef (27) IgE 0.19 kU/L; Beef Class 0/1; Pork (F26) IgE <0.10 kU/L; Pork Class 0
== END 2024-07-18 11:19 | disposition home or self-care (01) ==
PROVIDERS: PCP Family Medicine Adult Medicine; Visit Provider Nurse Practitioner Family
DX: K90.49 Malabsorption due to intolerance, not elsewhere classified (principal)
CPT/HCPCS: 36415; 86003; 86008

== ENCOUNTER → 2024-07-24 16:38 | Outpatient (BNVA) | payer OTHER, SELFPAY | PROVIDERS: PCP Family Medicine Adult Medicine; Visit Provider Family Medicine | DX: M54.9 Dorsalgia, unspecified (principal) | CPT/HCPCS: 81000 ==

== ENCOUNTER 2024-09-08 06:30 | Outpatient (RCR) | payer OTHER, SELFPAY | END 2024-10-07 23:59 | disposition home or self-care (01) | LOC: SPT 06:30 | PROVIDERS: PCP Family Medicine Adult Medicine; Visit Provider Family Medicine Adult Medicine | DX: N39.3 Stress incontinence (female) (male) (principal); M54.50 Low back pain, unspecified | CPT/HCPCS: 97110 ==

== ENCOUNTER 2024-09-27 07:40 | Outpatient (CLI) | payer OTHER, SELFPAY ==
--- NOTE | 2024-09-27 07:54 | XR_ITS ---
WS: [id number] Exam: XR ankle LT min 3V* [id number] Date/Time of Exam: 09/27/2024 7:54 AM Reason For Exam: ankle pain No fracture. The ankle mortise is well-maintained. Mild lateral soft tissue swelling. XR/XR ankle LT min 3V* [id number] IMPRESSION: 1. No acute fracture.
--- NOTE | 2024-09-27 07:54 | XR_ITS ---
WS: [id number] Exam: XR foot LT 2V [id number] Date/Time of Exam: 09/27/2024 7:54 AM Reason For Exam: left ankle pain No acute fracture. Soft tissues are unremarkable. The joints are well-maintained. XR/XR foot LT 2V [id number] IMPRESSION: 1. No fracture or other significant finding.
== END 2024-09-27 07:41 | disposition home or self-care (01) ==
PROVIDERS: PCP Family Medicine
DX: M25.572 Pain in left ankle and joints of left foot (principal)
CPT/HCPCS: 73610; 73620

== ENCOUNTER 2024-10-08 06:00 | Outpatient (RCR) | payer OTHER, SELFPAY | END 2024-11-07 23:59 | disposition home or self-care (01) | LOC: SPT 06:00 | PROVIDERS: Visit Provider Family Medicine Adult Medicine | DX: N39.3 Stress incontinence (female) (male) (principal); M54.50 Low back pain, unspecified | CPT/HCPCS: 97110; 97530 ==

== ENCOUNTER 2024-10-12 14:16 | Outpatient (CLI) | payer OTHER, SELFPAY ==
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
== END 2024-10-12 14:17 | disposition home or self-care (01) ==
PROVIDERS: PCP Family Medicine; Visit Provider Nurse Practitioner Family
DX: S93.492A Sprain of other ligament of left ankle, initial encounter (principal); M25.472 Effusion, left ankle; X58.XXXA Exposure to other specified factors, initial encounter
CPT/HCPCS: 73721

== ENCOUNTER 2024-11-06 13:25 | Outpatient (CLI) | payer OTHER, SELFPAY ==
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
== END 2024-11-06 13:26 | disposition home or self-care (01) ==
PROVIDERS: PCP Nurse Practitioner Family; Visit Provider Nurse Practitioner Family
DX: T07.XXXA Unspecified multiple injuries, initial encounter (principal); Z90.722 Acquired absence of ovaries, bilateral; X58.XXXA Exposure to other specified factors, initial encounter
CPT/HCPCS: 77080

== ENCOUNTER 2024-11-07 08:04 | Outpatient (RCR) | payer OTHER, SELFPAY | END 2024-11-07 23:59 | disposition home or self-care (01) | LOC: SPT 08:04 | PROVIDERS: PCP Family Medicine; Visit Provider Podiatrist Foot & Ankle Surgery | DX: S92.125D Nondisplaced fracture of body of left talus, subsequent encounter for fracture with routine healing (principal); S93.492D Sprain of other ligament of left ankle, subsequent encounter; X58.XXXD Exposure to other specified factors, subsequent encounter | CPT/HCPCS: 97161 ==

== ENCOUNTER 2024-11-08 06:30 | Outpatient (RCR) | payer OTHER, SELFPAY | END 2024-12-08 23:59 | disposition home or self-care (01) | LOC: SPT 06:30 | PROVIDERS: PCP Family Medicine; Visit Provider Podiatrist Foot & Ankle Surgery | DX: S99.912D Unspecified injury of left ankle, subsequent encounter (principal); S92.125D Nondisplaced fracture of body of left talus, subsequent encounter for fracture with routine healing; S93.492D Sprain of other ligament of left ankle, subsequent encounter; X58.XXXD Exposure to other specified factors, subsequent encounter | CPT/HCPCS: 97110 ==

== ENCOUNTER 2024-12-09 06:00 | Outpatient (RCR) | payer OTHER, SELFPAY | END 2025-01-05 23:59 | disposition home or self-care (01) | LOC: SPT 06:00 | PROVIDERS: PCP Family Medicine; Visit Provider Podiatrist Foot & Ankle Surgery | DX: S99.912D Unspecified injury of left ankle, subsequent encounter (principal); S92.125D Nondisplaced fracture of body of left talus, subsequent encounter for fracture with routine healing; S93.492D Sprain of other ligament of left ankle, subsequent encounter; X58.XXXD Exposure to other specified factors, subsequent encounter | CPT/HCPCS: 97110 ==

== ENCOUNTER 2024-12-09 06:30 | Outpatient (RCR) | payer OTHER, SELFPAY | END 2025-01-05 23:59 | disposition home or self-care (01) | LOC: SPT 06:30 | PROVIDERS: PCP Family Medicine; Visit Provider Family Medicine Adult Medicine | DX: N39.3 Stress incontinence (female) (male) (principal); M54.50 Low back pain, unspecified | CPT/HCPCS: 97110 ==

== ENCOUNTER 2025-01-06 06:00 | Outpatient (RCR) | payer OTHER, SELFPAY | END 2025-02-05 23:59 | disposition home or self-care (01) | LOC: SPT 06:00 | PROVIDERS: PCP Family Medicine; Visit Provider Podiatrist Foot & Ankle Surgery | DX: S99.912D Unspecified injury of left ankle, subsequent encounter (principal); S92.125D Nondisplaced fracture of body of left talus, subsequent encounter for fracture with routine healing; S93.492D Sprain of other ligament of left ankle, subsequent encounter; X58.XXXD Exposure to other specified factors, subsequent encounter | CPT/HCPCS: 97110 ==

== ENCOUNTER 2025-01-15 09:13 | Outpatient (CLI) | payer OTHER, SELFPAY ==
--- NOTE | 2025-01-15 09:00 | MM_ITS ---
WS: [id number] SCREENING DIGITAL BREAST TOMOSYNTHESIS MAMMOGRAM WITH CAD HISTORY: breast cancer screen COMPARISON: None available. Bilateral CC and MLO with tomosynthesis and synthetic mammography submitted. Computer aided detection analyzed. Breast composition: The breasts are heterogeneously dense, which may obscure small masses. Lobulated high density mass measures 12 x 13 x 15 mm RIGHT breast near 9:00. There is a biopsy clip noted on the lateral projection within this mass. The entire mass is not included on the CC projection. No prior studies for comparison. No suspicious grouping of calcifications. MM/MM scr tomosynthesis [id number] IMPRESSION: BI-RADS: 0 - Incomplete: Need additional imaging evaluation FOLLOW UP: Need Additional Imaging Recommendation: Ultrasound mass RIGHT breast at 9:00. There are no prior exami nations or reports for review to evaluate for any interval change. There is a b iopsy clip present but there is no prior report indicating the size of the mass . Suggest ultrasound follow-up to document size of this mass. Serial ultrasound follow-up may be necessary. If prior studies become available indicating the s ize of the mass ultrasound may not be of necessary.
== END 2025-01-15 09:14 | disposition home or self-care (01) ==
LOC: RAD 09:13
PROVIDERS: PCP Family Medicine; Visit Provider Family Medicine
DX: Z12.31 Encounter for screening mammogram for malignant neoplasm of breast (principal); R92.333 Mammographic heterogeneous density, bilateral breasts; N63.15 Unspecified lump in the right breast, overlapping quadrants
CPT/HCPCS: 77063; 77067

== ENCOUNTER 2025-02-06 05:15 | Outpatient (RCR) | payer OTHER, SELFPAY | END 2025-03-07 23:59 | disposition home or self-care (01) | LOC: SPT 05:15 | PROVIDERS: PCP Family Medicine; Visit Provider Podiatrist Foot & Ankle Surgery | DX: S92.125D Nondisplaced fracture of body of left talus, subsequent encounter for fracture with routine healing (principal); S93.492D Sprain of other ligament of left ankle, subsequent encounter; X58.XXXD Exposure to other specified factors, subsequent encounter | CPT/HCPCS: 97110 ==

== ENCOUNTER 2025-02-20 14:11 | Emergency (ER) | payer OTHER, SELFPAY ==
[2025-02-20 14:32] VITALS: BP 126/73; PULSE 80; RESP 16; TEMP 36.6; O2SAT 93
--- NOTE | 2025-02-20 14:53 | ED_ITS ---
HPI - Allergic Reaction General: Chief complaint: Allergic Reaction Stated complaint: allergic reaction (1 hr post epi) Time Seen by Provider: 02/20/25 14:40 Source: patient and family Limitations: no limitations History of Present Illness: HPI narrative: Patient is a 44-year-old female who presents today for presumably and alpha gal allergic reaction a few hours ago. Patient states that she tried eating several new foods including king bread, avocado rasmussen, a new granola bar, and some turkey/chicken and about 10 mins after eating she began developing a scratchy throat, difficulty swallowing, and felt like she had a large tongue. Has had similar reactions in the past treated with Benadryl. Symptoms worse today so she self administered her EpiPen (time of roughly 12:30). She then presented to her primary care where she was given a Decadron injection. They advised her to present to the ED due to persistent symptoms. Patient states that she typically is gluten-free, dairy free, soy free, and has alpha gal. She has ate a lot of dairy recently. Patient now is having abdominal bloating which is not overly abnormal for her. MD complaint: allergic reaction Onset (ago): hour(s) Exposure: food Associated symptoms: Reports abdominal pain (Tenderness), dysphagia, itching and tongue swelling; Deny dizziness, facial swelling, nausea or vomiting Severity: moderate Treatment prior to arrival: epinephrine and steroids Previous Allergic Reaction History: none Related Data Home Medications ?Medication ?Instructions ?Recorded ?Confirmed cetirizine 10 mg tablet (Zyrtec) 10 mg PO DAILY PRN Al lergy Symptoms 06/30/24 02/20/25 estradiol 0.05 mg/24 hr semiweekly See Rx Instructions .Route .COMPLEX 02/20/25 02/20/25 transdermal patch Previous Rx's ?Medication ?Instructions ?Recorded estradiol 0.01% (0.1 mg/gram) 1 appful vaginal DAILY # 42.5 grams 12/30/23 vaginal cream epgoikrjcl-hhnyqhflrntiy-pntigwcc 1 cap PO Q6H PRN galilea sarbjit #30 caps 07/24/24 50 mg-325 mg-40 mg capsule hydroxyzine HCl 50 mg tablet 50 mg PO Q6H PRN 09/18/24 itching/anxiety/insomnia #90 tabs epinephrine 0.3 mg/0.3 mL 0.3 mg (0.3 mL) IM Q30M PRN 01/01/25 injection, auto-injector (EpiPen anaphylaxis #2 ea 2-Mario Alberto) duloxetine 60 mg capsule,delayed 120 mg (2 x 60 mg) PO DAILY #180 02/05/25 release caps lamotrigine 100 mg tablet 150 mg (1.5 x 100 mg) PO KRISTEN LY 02/05/25 (Lamictal) mental health #135 tabs prazosin 2 mg capsule 2 mg PO .HS #30 caps 5 propranolol 20 mg tablet 20 mg PO BID PRN anxiety #60 tabs 02/05/25 Allergies Allergy/AdvReac Type Severity Reaction Status Date / Time bupropion (From Wellbutrin) Allergy Unknown Unknown Verified 02/20/25 14:39 gluten Allergy Unknown Unknown Verified 02/20/25 14:39 cephalexin (From Keflex) Allergy ALGY-Rash Verified 02/20/25 14:39 nortriptyline Allergy ADR/ALGY-Pa Verified 02/20/25 14:39 lpitations prochlorperazine (From Allergy ADR-Shakine Verified 02/20/25 14:39 Compazine) ss Sulfa (Sulfonamide Allergy ALGY-Rash Verified 02/20/25 14:39 Antibiotics) tomatoes Allergy Unknown Uncoded 02/20/25 14:39 Alpha Gal AdvReac Intermediate Swelling & Uncoded 02/20/25 14:39 itching. Review of Systems Const: Denies: fever(s), chills, body aches or fatigue Eyes: Denies: change in vision or blurry vision ENMT: Reports: throat pain, odynophagia and dry mouth; Denies: nasal discharge Card: Denies: chest pain, palpitations, irregular heart rhythm, edema or syncope Resp: Denies: dyspnea or wheezing GI: Reports: abdominal pain (Tenderness), dysphagia, bloating and GI cramping; Denies: nausea, vomiting, hematochezia or melena Musc: Denies: neck pain or back pain Skin/Breast: Denies: rash, pruritus or erythema Neuro: Denies: headache(s), numbness in extremities, weakness in extremities or dizziness Psych: Reports: anxiety, depression and panic attacks All/Imm: Reports: tongue swelling and food intolerance; Denies: urticaria or facial swelling PFSH ED PFSH: Medical History Interstitial cystitis Psychiatric care Low back pain Stress incontinence in female Hx of long-term (current) use of postmenopausal hormone replacement therapy Postmenopausal disorder Chronic kidney disease, stage 3a TMJ arthralgia Migraines Anxiety IBS (irritable bowel syndrome) Fibromyalgia PTSD (post-traumatic stress disorder) History of endometriosis Surgical History History of total hysterectomy with bilateral salpingo-oophorectomy (BSO) S/P endometrial ablation S/P colonoscopy H/O abdominal surgery S/P cystoscopy S/P radical vaginal hysterectomy History of thoracotomy S/P appendectomy Family History Father Myocardial infarction Hypertension CAD (coronary artery disease) Grandfather Myocardial infarction Hypertension Grandmother Myocardial infarction Hypertension Diabetes Family/Other Myocardial infarction Both sides of families Hypertension Mother Hypertension Social History Smoking and tobacco/nicotine status: never used tobacco/nicotine Alcohol intake: never Substance/Drug Use: never Marital status: Single Current occupational status: employed Current occupation: speech therapist at [employer] Leisure activites: other Leisure activities details: hiking, embr[place]ne[place]ry, gardening Special narayan needs: Yes Details: no vaccines Agree to transfusion: Yes Physical Exam Const: COMMON NORMALS: no acute distress, average body habitus, patient oriented x3, no limitations, healthy appearing, alert and well nourished GENERAL APPEARANCE: cooperative HENMT: FACE & SINUS: normal facial exam; no edema MOUTH: Normal oral and palatal mucosa present, lip normal, tongue normal and Normal salivary glands and ducts present THROAT: posterior oropharynx normal and tonsils normal Neck/C-Spine: COMMON NORMALS: no lymphadenopathy GENERAL: No anterior neck swelling and No submandibular swelling Resp: COMMON NORMALS: normal respiratory effort and clear to auscultation bilaterally AUSCULTATION: clear to auscultation bilaterally Cardio: COMMON NORMALS: regular rate and regular rhythm RATE: regular rate RHYTHM: regular rhythm GI: COMMON NORMALS: Normal to inspection, nondistended, normoactive bowel sounds present, Soft to palpation, No hepatosplenomegaly present and no masses INSPECTION: Yes normal to inspection AUSCULTATION: Yes normoactive bowel sounds PALPATION: Yes Soft to palpation, Yes Tenderness to palpation present (GI) (mild lower abdominal pain/cramping), No Guarding due to palpation present (GI), No Rigid due to palpation and Yes No hepatosplenomegaly present Extremity: GENERAL: Yes normal exam except as noted Neuro: VANESSA COMA SCALE: document GCS findings [place] coma scale eye opening: Spontaneous Vanessa coma scale verbal response: Orientated [place] coma scale motor response: Obey commands Vanessa coma scale total score: 15 COMMON NORMALS: patient oriented x3, CN's II-XII intact bilaterally, moves all extremities, no focal motor deficits, no sensory deficits noted and gait normal SENSORIUM/ORIENTATION: Yes alert Skin: COMMON NORMALS: no rashes or lesions noted GENERAL SKIN EXAM: no rashes or lesions noted Course Vital Signs: Vital signs: Vital Signs Temperature 97.8 F 02/20/25 14:32 Pulse Rate 87 02/20/25 15:37 Respiratory Rate 16 02/20/25 14:32 Blood Pressure 130/82 02/20/25 15:37 Pulse Oximetry 96 02/20/25 15:37 Oxygen Delivery Me thod Room Air 02/20/25 15:37 MDM - Allergic Reaction Medical Decision Making Patient here following allergic reaction. She had self-administered epinephrine around 12:30. She was monitored until after 4:00 for biphasic/rebound reaction and had none. She received IM steroids through the clinic prior to arrival to the emergency department. Here she received IV Benadryl and Pepcid. At time of reexamination, she feels better. She clinically appears in no acute distress. She is drinking water. Patient will be allowed discharge with return precautions. Medical Records I reviewed the patient's medical records. No radiology studies performed this visit Discharge Plan Discharge Patient Disposition: Home Clinical Impression: Allergic reaction Qualifiers: Encounter type: initial encounter Qualified Code(s): T78.40XA - Allergy, unspecified, initial encounter Condition: Stable Prescriptions: No Action estradiol 0.01 % (0.1 mg/gram) cream 1 appful vaginal DAILY Qty: 42.5 5RF Rx Instructions: daily for 7 days then every 3rd day hydroxyzine HCl 50 mg tablet 50 mg PO Q6H PRN (Reason: itching/anxiety/insomnia) Qty: 90 4RF cetirizine [Zyrtec] 10 mg tablet 10 mg PO DAILY PRN (Reason: Allergy Symptoms) ldkgcfjttu-pzmqmnuehctew-bovf 50-325-40 mg capsule 1 cap PO Q6H PRN (Reason: migraine) Qty: 30 1RF epinephrine [EpiPen 2-Mario Alberto] 0.3 mg/0.3 mL auto-injector 0.3 mg IM Q30M PRN (Reason: anaphylaxis) Qty: 2 0RF Rx Instructions: do not exceed 12 doses per 24 hrs prazosin 2 mg capsule 2 mg PO .HS Qty: 30 2RF duloxetine 60 mg capsule,delayed release(DR/EC) 120 mg PO DAILY Qty: 180 1RF propranolol 20 mg tablet 20 mg PO BID PRN (Reason: anxiety) Qty: 60 4RF lamotrigine [Lamictal] 100 mg tablet 150 mg PO DAILY Qty: 135 4RF estradiol 0.05 mg/24 hr patch semiweekly See Rx Instructions .ROUTE .COMPLEX Rx Instructions: APPLY ONE PATCH TO SKIN twice a week Discharge Orders: Discharge ED (Routine); Ordered 02/20/25 Ordered By: Jessica Santos Referrals: Kylee Laguna MD [Primary Care Provider] - Patient Instructions: General Allergic Reaction (ED), Alpha-gal Syndrome (DC) Activity Restrictions/Additional Instructions: As we discussed, you may return to the emergency department for onset of tongue or lip swelling, difficulty swallowing or controlling secretions, difficulty breathing, severe abdominal pain, worsening allergic symptoms, or any other concerns you may have. Print Language: Bruneian Coding Level of Care Code ED Senior Shipping Clerk for Rosana Humphreys
[2025-02-20] MEDS: dicyclomine 20 mg Tablet PO (15:21)
[2025-02-20] MEDS: diphenhydrAMINE 50 mg/mL SDV 1mL IVP (15:22)
[2025-02-20] MEDS: famotidine 20 mg/2 mL INJ 40 MG IVP (15:27)
[2025-02-20 15:37] VITALS: BP 130/82; PULSE 87; O2SAT 96
[2025-02-20 16:23] VITALS: BP 130/82; PULSE 87; O2SAT 98
== END 2025-02-20 16:24 | disposition home or self-care (01) ==
PROVIDERS: Emergency Provider Physician Assistant; PCP Family Medicine
DX: T78.40XA Allergy, unspecified, initial encounter (principal); X58.XXXA Exposure to other specified factors, initial encounter; N18.31 Chronic kidney disease, stage 3a
CPT/HCPCS: 96374; 96375; 99284; J1200; J3490; J9999

== ENCOUNTER 2025-04-08 05:00 | Outpatient (RCR) | payer OTHER, SELFPAY | END 2025-05-07 23:59 | disposition home or self-care (01) | LOC: SPT 05:00 | PROVIDERS: PCP Family Medicine; Visit Provider Podiatrist Foot & Ankle Surgery | DX: S99.912D Unspecified injury of left ankle, subsequent encounter (principal); S92.125D Nondisplaced fracture of body of left talus, subsequent encounter for fracture with routine healing; S93.492D Sprain of other ligament of left ankle, subsequent encounter; X58.XXXD Exposure to other specified factors, subsequent encounter | CPT/HCPCS: 97110 ==

== ENCOUNTER 2025-05-08 05:00 | Outpatient (RCR) | payer OTHER, SELFPAY | END 2025-06-07 23:59 | disposition home or self-care (01) | LOC: SPT 05:00 | PROVIDERS: PCP Family Medicine; Visit Provider Podiatrist Foot & Ankle Surgery | DX: S99.912D Unspecified injury of left ankle, subsequent encounter (principal); S92.125D Nondisplaced fracture of body of left talus, subsequent encounter for fracture with routine healing; S93.492D Sprain of other ligament of left ankle, subsequent encounter; X58.XXXD Exposure to other specified factors, subsequent encounter | CPT/HCPCS: 97110 ==

== ENCOUNTER 2025-07-27 07:30 | Outpatient (CLI) | payer OTHER, SELFPAY ==
[2025-07-27 08:02] LABS: Hematocrit 42.2 % (36-47); Hemoglobin 14.20 g/dL (11.27-16.99); Mean Corpuscular HGB Conc 33.6 g/dL (30-55); Mean Corpuscular Hemoglobin 30.1 pg (27-33); Mean Corpuscular Volume 89.4 fl (85-98); Nucleated Red Blood Cells % 0 %; Platelet Count 288 10^3/cmm (157-399); Red Blood Count 4.72 10^6/uL (3.85-5.65); White Blood Count 7.21 10^3/uL (3.29-11.43)
[2025-07-27 08:44] LABS: Alanine Aminotransferase 13 U/L (0-33); Albumin Level 4.4 g/dL (3.5-5.2); Alkaline Phosphatase 75 U/L (35-105); Anion Gap 14.4 (5-19); Aspartate Amino Transferase 15 U/L (0-32); Blood Urea Nitrogen 14 mg/dL (6-20); Calcium 9.1 mg/dL (8.5-10.5); Carbon Dioxide 26 mmol/L (22-29); Chloride 100 mmol/L (98-107); Cholesterol 256 mg/dL (0-200); Globulin 2.6 g/dL (1.3-4.6); Glucose 104 mg/dL (65-115); HDL Cholesterol 47 mg/dL (60-100); Osmolality Calculated 283 mOsm/kg (285-295); Potassium 4.4 mmol/L (3.5-5.1); Sodium 136 mmol/L (136-145); Thyroid Stimulating Hormone 1.10 uIU/mL (0.27-4.20); Total Protein 7.0 g/dL (6.6-8.7); Triglycerides 192 mg/dL (0-150); Vitamin B12 1172 pg/mL (232-1245)
== END 2025-07-27 07:31 | disposition home or self-care (01) ==
PROVIDERS: PCP Family Medicine; Visit Provider Family Medicine
DX: Z00.00 Encounter for general adult medical examination without abnormal findings (principal); R53.83 Other fatigue
CPT/HCPCS: 80053; 80061; 82306; 82607; 84443; 85025

== ENCOUNTER 2025-08-14 12:13 | Outpatient (CLI) | payer OTHER, SELFPAY ==
--- NOTE | 2025-08-14 12:20 | XR_ITS ---
WS: [id number] K[facility], AP view, 08/14/2025 Clinical Data: abdominal pain, hx bowel obstruction, prior abdominal surg Comparison: KUB, 06/30/2024 Findings: No abnormal intraabdominal masses or calcifications are seen. There is no dilatated small bowel or evidence of obstruction. There is a moderate amount of fecal material in the colon. There are small surgical sutures on the left side of the true pelvis. XR/XR KUB [id number] Impression: Moderate amount of fecal material in the colon.
== END 2025-08-14 12:14 | disposition home or self-care (01) ==
PROVIDERS: PCP Family Medicine; Visit Provider Family Medicine
DX: R10.9 Unspecified abdominal pain (principal); K56.41 Fecal impaction
CPT/HCPCS: 74018; 81000